=== PATIENT | male | born 1955 | race Caucasian/White ===

== ENCOUNTER → 2016-12-09 | Outpatient (CLI) | payer BC, OTHER ==
[~2016-12-09] MED LIST: Chondroitin PO; Glucosamine PO; NIAC500T8 PO
[2016-12-09 10:03] LABS: CHOLESTEROL/HDL RATIO 4.5
== END | disposition home or self-care (01) ==
LOC: C.LAB 16:46
PROVIDERS: ATTEND Nurse Practitioner Family
DX: E78.00 Pure hypercholesterolemia, unspecified (principal); Z11.59 Encounter for screening for other viral diseases

== ENCOUNTER → 2017-02-11 | Outpatient (CLI) | payer BC, OTHER ==
[~2017-02-11] MED LIST changes: +OPTIRAY 320 IV PRN
--- NOTE | 2017-02-11 16:22 | DIAGNOSTIC IMAGING REPORT ---
CT soft tissue neck SOFT TISSUE NECK WITH CLINICAL HISTORY: CLL lymphoma TECHNIQUE: Transaxial acquisition with multi axial reformatted images. COMPARISON STUDY: None FINDINGS: Moderate cervical adenopathy bilaterally. As compared to a prior PET scan of 06/13/2014, these appear stable. There is no new interval or progressive nodular pathology. The right and to a lesser extent left cervical nodes measure up to and include 6.5 mm. Bulky adenopathy is not appreciated. Glottic and subglottic regions are unremarkable. IMPRESSION: 1. Mild cervical adenopathy bilaterally 2. These rosalee changes are unchanged compared to a prior PET scan of 06/13/2014.. 3. Otherwise negative study. Electronically signed by: Jose Delgado M.D. 02/11/2017 4:21 PM Dictated Date/Time: 02/11/2017 4:16 PM
--- NOTE | 2017-02-11 16:23 | DIAGNOSTIC IMAGING REPORT ---
CHEST, ABDOMEN, AND PELVIS CT WITH CONTRAST CT DOSE: 1689.15 mGy.cm HISTORY: CLL TECHNIQUE: Multiaxial CT images of the chest, abdomen, and pelvis were performed following the intravenous administration of contrast. Oral contrast was also administered. COMPARISON: Chest abdomen and pelvis 08/09/2016. FINDINGS: No pneumothorax. The central airways are patent. No focal lung consolidations to suggest pneumonia. There are few tiny subpleural nodular densities seen within the right middle lobe and left lower lobe which remain unchanged. Dominant subpleural nodule within the right middle lobe on image 46 measures 4 mm. Mild interstitial thickening within the periphery of the right middle lobe. Stable linear scarlike densities within the right lower lobe. No suspicious lytic or blastic osseous lesions. Slightly heterogeneous appearance to the right thyroid gland. The mediastinal and hilar lymphadenopathy has resolved. The mediastinal vascular structures are within normal limits. Bilateral axillary lymph nodes have significantly decreased in size. Dominant right axillary lymph node measures 15 x 10 mm, previously measuring 4.6 x 3.1 cm. No pneumoperitoneum. No pneumatosis. No suspicious lytic or blastic osseous lesions within the visualized osseous structures of the abdomen and pelvis. The spleen is normal in size measuring 11 cm in length. A 4 mm hypodense lesion within the left hepatic lobe is too small to characterize but remain stable. The gallbladder, adrenal glands, pancreas, and kidneys are unremarkable. Normal bladder. No bowel wall thickening or obstruction. The prominent lymph nodes within the abdomen and pelvis have essentially resolved in the interval. For comparative purposes a portacaval lymph node currently measures 11 x 6 mm. This previously measured 3.6 x 2.1 cm. The inguinal lymphadenopathy has also essentially resolved with a few subcentimeter lymph nodes remaining. There are 2 right retroperitoneal soft tissue nodules which have significantly decreased in size. Dominant nodule on image 48 measures 5 mm, previously measuring 1.9 cm. IMPRESSION: 1. Significant improvement with near complete resolution of the lymphadenopathy within the chest, abdomen, and pelvis as described above. 2. The spleen is now normal in size. 3. A few subcentimeter nodules within the lung bases remain stable. Electronically signed by: Justen Aguilar M.D. 02/11/2017 4:21 PM Dictated Date/Time: 02/11/2017 4:11 PM
== END | disposition home or self-care (01) ==
LOC: C.CTS 15:24
PROVIDERS: ATTEND Internal Medicine Hematology & Oncology
DX: C91.10 Chronic lymphocytic leukemia of B-cell type not having achieved remission (principal); R91.8 Other nonspecific abnormal finding of lung field

== ENCOUNTER → 2017-10-09 | Outpatient (CLI) | payer BC ==
[~2017-10-09] MED LIST changes: -OPTIRAY 320 IV PRN
[2017-10-09 09:42] LABS: HEMOGLOBIN A1C 5.2 % (4.5-5.6)
== END | disposition home or self-care (01) ==
LOC: C.LAB 12:02
PROVIDERS: ATTEND Nurse Practitioner Family
DX: E78.00 Pure hypercholesterolemia, unspecified (principal)

== ENCOUNTER → 2017-12-12 | Outpatient (CLI) | payer BC | END | disposition home or self-care (01) | LOC: C.LABSPEC 11:20 | PROVIDERS: ATTEND Nurse Practitioner Family | DX: J02.9 Acute pharyngitis, unspecified (principal) ==

== ENCOUNTER → 2018-03-06 | Outpatient (CLI) | payer BC ==
[2018-03-06 10:14] LABS: ALBUMIN 4.4 gm/dl (3.4-5.0); ALKALINE PHOSPHATASE 83 U/L (45-117); ALT/SGPT 52 U/L (12-78); AST/SGOT 29 U/L (15-37); BLOOD UREA NITROGEN 19 mg/dl (7-18); CALCIUM 8.9 mg/dl (8.5-10.1); CARBON DIOXIDE 27 mmol/L (21-32); CHOLESTEROL 179 mg/dl (0-200); CREATININE 0.99 mg/dl (0.60-1.40); GLUCOSE 98 mg/dl (70-99); LDL CHOLESTEROL CALCULATED 108 mg/dl; POTASSIUM 4.4 mmol/L (3.5-5.1); SODIUM 139 mmol/L (136-145); TOTAL PROTEIN 7.4 gm/dl (6.4-8.2)
== END | disposition home or self-care (01) ==
LOC: C.LAB 08:57
PROVIDERS: ATTEND Nurse Practitioner Family
DX: E78.00 Pure hypercholesterolemia, unspecified (principal)